=== PATIENT | male | born 1990 | race Two or more races ===

== ENCOUNTER 2020-02-14 10:00 | Emergency (ER) | payer OTHER ==
[~2020-02-14] VITALS: Ht 172.7 cm; Wt 80.0 kg
[2020-02-14 10:05] VITALS: BP 150/89
== END 2020-02-14 11:14 | disposition home or self-care (01) ==
LOC: ER 10:00
DX: J06.9 Acute upper respiratory infection, unspecified (principal); R05 Cough; R09.89 Other specified symptoms and signs involving the circulatory and respiratory systems; Z20.828 Contact with and (suspected) exposure to other viral communicable diseases
CPT/HCPCS: 36415; 87635; 99283

== ENCOUNTER 2021-08-02 15:15 | Emergency (ER) | payer MEDICAID ==
[~2021-08-02] VITALS: Ht 172.7 cm; Wt 79.0 kg
[2021-08-02] MEDS ORDERED: dexamethasone sod phosphate 10mg/ml inj IM STA (16:15)
[2021-08-02] MEDS ORDERED: ketorolac trometh inj. 60 MG/2 ML VIAL IM ONE (16:15)
[2021-08-02] MEDS ORDERED: LIDOcaine 5% patch TP STA (16:15)
[2021-08-02 16:59] VITALS: BP 126/86
[2021-08-02] MEDS ORDERED: DEXA4TAB67 PO (18:21)
[2021-08-02] MEDS ORDERED: CYCL5TAB PO (18:22)
== END 2021-08-02 18:29 | disposition home or self-care (01) ==
LOC: ER 15:15
DX: M54.59 Other low back pain (principal); Z79.899 Other long term (current) drug therapy
CPT/HCPCS: 96372; 99284; J1100; J1885; 96374; 96375